=== PATIENT | female | born 1950 | race Caucasian/White ===

== ENCOUNTER → 2023-08-25 10:17 | Outpatient (REF) | payer MEDICARE, OTHER, SELFPAY | LOC: DHCBC MAIN 10:17 | PROVIDERS: ATTENDING PHYSICIAN Internal Medicine Cardiovascular Disease; FAMILY PHYSICIAN Nurse Practitioner Adult Health | DX: I35.1 Nonrheumatic aortic (valve) insufficiency (principal) | CPT/HCPCS: 93306 ==

== ENCOUNTER → 2023-09-19 11:52 | Outpatient (REF) | payer MEDICARE, OTHER, SELFPAY | LOC: DHCBC/DCA 11:52 | PROVIDERS: ATTENDING PHYSICIAN Internal Medicine Cardiovascular Disease; FAMILY PHYSICIAN Nurse Practitioner Adult Health | DX: R94.31 Abnormal electrocardiogram [ECG] [EKG] (principal); R06.00 Dyspnea, unspecified | CPT/HCPCS: 78452; 93017; A9500 ==

== ENCOUNTER → 2023-11-02 11:28 | Outpatient (REF) | payer MEDICARE, OTHER, SELFPAY ==
[2023-11-02 12:26] LABS: % Basophils 0.9 % (0-2); % Eosinophils 1.6 % (0-6); % Immature Granulocytes 0.3 % (0-0.5); % Lymphocytes 29.6 % (20.5-51.1); % Monocytes 7.5 % (1.7-9.3); % Neutrophils 60.1 % (42.2-75.2); Absolute Basophils 0.1 10^3/uL (0-0.2); Absolute Eosinophils 0.1 10^3/uL (0-0.7); Absolute Lymphocytes 2.1 10^3/uL (1.2-3.4); Absolute Monocytes 0.5 10^3/uL (0.1-0.6); Absolute Neutrophils 4.2 10^3/uL (1.4-6.5); Hematocrit 37.8 % (37.0-47.0); Hemoglobin 12.9 g/dL (12.0-16.0); Mean Corp Hgb Conc. 34.1 g/dL (33.0-37.0); Mean Corpuscular Hgb 31.2 pg (27.0-31.0); Mean Corpuscular Volume 91.5 fL (81.0-99.0); Mean Platelet Volume 9.8 fL (7.4-10.4); Nucleated Red Blood Cells % 0 %; Platelet Count 340 10^3/uL (130-400); Red Blood Cell Count 4.13 10^6/uL (4.20-5.40); Red Cell Dist. Width 12.9 % (11.5-14.5)
[2023-11-02 12:36] LABS: Erythrocyte Sed Rate 12 mm/hour (0-20)
[2023-11-02 13:56] LABS: Glycohemoglobin (HgbA1c) 5.8 % (4.0-5.6)
[2023-11-02 14:31] LABS: ALT (SGPT) 21 U/L (0-35); AST (SGOT) 29 U/L (14-36); Albumin 4.6 g/dl (3.5-5.0); Alkaline Phosphatase 80 U/L (38-126); Blood Urea Nitrogen 12 mg/dl (7-17); Calcium 9.5 mg/dl (8.4-10.2); Carbon Dioxide 29 mmol/L (22-30); Chloride 102 mmol/L (98-107); Creatine Phosphokinase 75 U/L (30-135); Glucose 92 mg/dl (70-99); HDL Cholesterol 99 mg/dl; Iron 143 ug/dl (37-170); LDL Cholesterol, Calculated 70 mg/dl; Potassium 4.3 mmol/L (3.5-5.1); Sodium 136 mmol/L (135-145); Total Bilirubin 0.6 mg/dl (0.2-1.3); Total Cholesterol 213 mg/dl (50-199); Total Protein 7.2 g/dl (6.3-8.2); Triglyceride 222 mg/dl (10-149); Very Low Density Lipoprotein 44 mg/dl (0-30); eGFR > 60.00
[2023-11-02 14:40] LABS: Percent Saturation 47 % (20-50); Total Iron Binding Capacity 300 ug/dl (265-497)
[2023-11-02 15:43] LABS: TSH Reflex To Free T4 0.55 uIU/ml (0.47-4.68)
[2023-11-02 15:47] LABS: Ferritin 55.3 ng/ml (11.1-264.0)
[2023-11-04 20:55] LABS: ANA, IgG Reflex to HEp-2 None Detected (None Detected)
[2023-11-06 16:55] LABS: Lyme Antibody Screen, EIA Negative (Negative)
== END ==
LOC: REG 11:28
PROVIDERS: ATTENDING PHYSICIAN Nurse Practitioner Adult Health
DX: I10 Essential (primary) hypertension (principal); M79.10 Myalgia, unspecified site; R53.83 Other fatigue; R42 Dizziness and giddiness; Z86.16 Personal history of COVID-19; R73.01 Impaired fasting glucose; E78.2 Mixed hyperlipidemia; D64.9 Anemia, unspecified
CPT/HCPCS: 36415; 80053; 80061; 82550; 82728; 83036; 83540; 83550; 84443; 85025; 85652; 86038; 86618

== ENCOUNTER → 2024-01-15 08:11 | Outpatient (REF) | payer MEDICARE, OTHER, SELFPAY | LOC: WDC 08:11 | PROVIDERS: ATTENDING PHYSICIAN Obstetrics & Gynecology Gynecology; FAMILY PHYSICIAN Nurse Practitioner Adult Health | DX: R92.8 Other abnormal and inconclusive findings on diagnostic imaging of breast (principal); N64.59 Other signs and symptoms in breast | CPT/HCPCS: 76642 ==

== ENCOUNTER → 2024-01-17 08:01 | Outpatient (REF) | payer MEDICARE, OTHER, SELFPAY ==
--- NOTE | 2024-01-17 14:11 | OID.BR.INTR ---
[facility] Breast Navigator - Initial
- -
Date of Contact: 01/17/24
Met with patient. Patient given written information on navigator services and support services available at [facility]. Will follow up as needed per protocol.
== END ==
LOC: WDC 08:01
PROVIDERS: ATTENDING PHYSICIAN Obstetrics & Gynecology Gynecology; FAMILY PHYSICIAN Nurse Practitioner Adult Health
DX: N63.14 Unspecified lump in the right breast, lower inner quadrant (principal)
CPT/HCPCS: 88305; 19083; 88341; 88342; 88360

== ENCOUNTER → 2024-02-22 07:02 | Outpatient (REF) | payer MEDICARE, OTHER, SELFPAY | LOC: MRI 07:02 | PROVIDERS: ATTENDING PHYSICIAN Orthopaedic Surgery; FAMILY PHYSICIAN Nurse Practitioner Adult Health | DX: M25.511 Pain in right shoulder (principal) | CPT/HCPCS: 73221 ==

== ENCOUNTER → 2024-03-04 07:44 | Outpatient (REF) | payer MEDICARE, OTHER, SELFPAY | LOC: WDC 07:44 | PROVIDERS: ATTENDING PHYSICIAN Surgery; FAMILY PHYSICIAN Nurse Practitioner Adult Health | DX: D24.1 Benign neoplasm of right breast (principal); R92.8 Other abnormal and inconclusive findings on diagnostic imaging of breast | CPT/HCPCS: 76642 ==

== ENCOUNTER 2024-03-15 06:15 | Day surgery (SDC) | payer MEDICARE, OTHER, SELFPAY ==
--- NOTE | 2024-03-06 11:51 | PTCARENOTE ---
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 See prior EKG scanned dated 08/30/23 that shows prior history of septal infarct.
[2024-03-15] VITALS (10 sets, daily range): BP systolic 90–165; BP diastolic 46–89; BMI 28.0
[2024-03-15] MEDS: VANCOCIN 200 IV (10:40)
[2024-03-15] MEDS: NORMOSOL-R/PLASMALYTE-A 1000 IV (10:42)
[2024-03-15] MEDS: DDAVP 54.875 MCG IV (10:45)
[2024-03-15] MEDS: TYLENOL 500 MG PO (10:46)
== END 2024-03-15 14:34 | disposition home or self-care (01) ==
LOC: SDS 06:15
PROVIDERS: ATTENDING PHYSICIAN Surgery
PROC: 0HBT0ZZ Excision of Right Breast, Open Approach (ICD-10-PCS; 2024-03-15)
DX: D24.1 Benign neoplasm of right breast (principal)
CPT/HCPCS: 19120; A4648; J2597

== ENCOUNTER → 2024-05-23 13:15 | Outpatient (REF) | payer MEDICARE, OTHER, SELFPAY ==
[2024-05-23 15:32] LABS: % Basophils 0.9 % (0-2); % Eosinophils 1.6 % (0-6); % Immature Granulocytes 0.3 % (0-0.5); % Lymphocytes 26.3 % (20.5-51.1); % Neutrophils 62.9 % (42.2-75.2); Absolute Basophils 0.1 10^3/uL (0-0.2); Absolute Eosinophils 0.1 10^3/uL (0-0.7); Absolute Lymphocytes 2.3 10^3/uL (1.2-3.4); Absolute Monocytes 0.7 10^3/uL (0.1-0.6); Absolute Neutrophils 5.5 10^3/uL (1.4-6.5); Hematocrit 38.8 % (37.0-47.0); Hemoglobin 12.9 g/dL (12.0-16.0); Mean Corp Hgb Conc. 33.2 g/dL (33.0-37.0); Mean Corpuscular Hgb 30.4 pg (27.0-31.0); Mean Corpuscular Volume 91.5 fL (81.0-99.0); Mean Platelet Volume 10.3 fL (7.4-10.4); Nucleated Red Blood Cells % 0 %; Platelet Count 372 10^3/uL (130-400); Red Blood Cell Count 4.24 10^6/uL (4.20-5.40); Red Cell Dist. Width 12.1 % (11.5-14.5); White Blood Cell Count 8.7 10^3/uL (4.8-10.8)
[2024-05-23 15:59] LABS: ALT (SGPT) 21 U/L (0-35); AST (SGOT) 28 U/L (14-36); Albumin 4.6 g/dl (3.5-5.0); Alkaline Phosphatase 79 U/L (38-126); Blood Urea Nitrogen 12 mg/dl (7-17); Calcium 9.3 mg/dl (8.4-10.2); Carbon Dioxide 28 mmol/L (22-30); Chloride 99 mmol/L (98-107); Glucose 90 mg/dl (70-99); HDL Cholesterol 93 mg/dl; LDL Cholesterol, Calculated 75 mg/dl; Potassium 4.2 mmol/L (3.5-5.1); Sodium 142 mmol/L (135-145); Total Bilirubin 0.5 mg/dl (0.2-1.3); Total Cholesterol 202 mg/dl (50-199); Total Protein 7.2 g/dl (6.3-8.2); Triglyceride 170 mg/dl (10-149); Very Low Density Lipoprotein 34 mg/dl (0-30); eGFR > 60.00
[2024-05-23 16:21] LABS: TSH 0.18 uIU/ml (0.47-4.68)
== END ==
LOC: REG 13:15
PROVIDERS: ATTENDING PHYSICIAN Nurse Practitioner Adult Health
DX: L65.9 Nonscarring hair loss, unspecified (principal); Z00.01 Encounter for general adult medical examination with abnormal findings; E78.2 Mixed hyperlipidemia; R53.82 Chronic fatigue, unspecified
CPT/HCPCS: 36415; 80053; 80061; 84443; 85025

== ENCOUNTER → 2024-07-16 14:27 | Outpatient (REF) | payer MEDICARE, OTHER, SELFPAY | LOC: HWRAD 14:27 | PROVIDERS: ATTENDING PHYSICIAN Obstetrics & Gynecology Gynecology; FAMILY PHYSICIAN Nurse Practitioner Adult Health | DX: Z78.0 Asymptomatic menopausal state (principal); Z12.31 Encounter for screening mammogram for malignant neoplasm of breast | CPT/HCPCS: 77063; 77067; 77080 ==

== ENCOUNTER → 2024-07-22 10:07 | Outpatient (REF) | payer MEDICARE, OTHER, SELFPAY | LOC: WDC 10:07 | PROVIDERS: ATTENDING PHYSICIAN Obstetrics & Gynecology Gynecology; FAMILY PHYSICIAN Nurse Practitioner Adult Health | DX: R92.8 Other abnormal and inconclusive findings on diagnostic imaging of breast (principal) | CPT/HCPCS: 76642 ==

== ENCOUNTER → 2024-09-17 15:33 | Outpatient (REF) | payer MEDICARE, OTHER, SELFPAY | LOC: RCS 15:33 | PROVIDERS: ATTENDING PHYSICIAN Physician Assistant; FAMILY PHYSICIAN Nurse Practitioner Adult Health | DX: J98.4 Other disorders of lung (principal) | CPT/HCPCS: 71046; 93005 ==

== ENCOUNTER 2024-11-05 09:30 | Outpatient (RCR) | payer MEDICARE, OTHER, SELFPAY | END 2024-11-06 11:04 | disposition home or self-care (01) | LOC: PURB 09:30 | PROVIDERS: ATTENDING PHYSICIAN Internal Medicine; FAMILY PHYSICIAN Nurse Practitioner Adult Health | DX: J98.4 Other disorders of lung (principal); J45.30 Mild persistent asthma, uncomplicated; R06.09 Other forms of dyspnea | CPT/HCPCS: G0237; G0239 ==

== ENCOUNTER 2024-11-14 09:30 | Outpatient (RCR) | payer MEDICARE, OTHER, SELFPAY | END 2024-12-06 10:42 | disposition home or self-care (01) | LOC: PURB 09:30 | PROVIDERS: ATTENDING PHYSICIAN Internal Medicine; FAMILY PHYSICIAN Nurse Practitioner Adult Health | DX: J98.4 Other disorders of lung (principal); J45.30 Mild persistent asthma, uncomplicated; R06.09 Other forms of dyspnea | CPT/HCPCS: G0239 ==

== ENCOUNTER → 2024-12-03 08:41 | Outpatient (REF) | payer MEDICARE, OTHER, SELFPAY ==
[2024-12-03 09:42] LABS: ALT (SGPT) 19 U/L (0-35); AST (SGOT) 24 U/L (14-36); Albumin 4.5 g/dl (3.5-5.0); Alkaline Phosphatase 64 U/L (38-126); Blood Urea Nitrogen 10 mg/dl (7-17); Calcium 9.4 mg/dl (8.4-10.2); Carbon Dioxide 30 mmol/L (22-30); Chloride 103 mmol/L (98-107); Glucose 113 mg/dl (70-99); HDL Cholesterol 90 mg/dl; LDL Cholesterol, Calculated 76 mg/dl; Potassium 4.2 mmol/L (3.5-5.1); Sodium 140 mmol/L (135-145); Total Bilirubin 0.7 mg/dl (0.2-1.3); Total Cholesterol 196 mg/dl (50-199); Total Protein 7.2 g/dl (6.3-8.2); Triglyceride 152 mg/dl (10-149); Very Low Density Lipoprotein 30 mg/dl (0-30); eGFR > 60.00
[2024-12-03 10:05] LABS: TSH Reflex To Free T4 0.99 uIU/ml (0.47-4.68)
== END ==
LOC: REG 08:41
PROVIDERS: ATTENDING PHYSICIAN Nurse Practitioner Adult Health
DX: I10 Essential (primary) hypertension (principal); E78.2 Mixed hyperlipidemia; G43.109 Migraine with aura, not intractable, without status migrainosus; R42 Dizziness and giddiness; R79.89 Other specified abnormal findings of blood chemistry
CPT/HCPCS: 36415; 80053; 80061; 84443

== ENCOUNTER 2025-01-02 09:30 | Outpatient (RCR) | payer MEDICARE, OTHER, SELFPAY | END 2025-01-06 09:39 | disposition home or self-care (01) | LOC: PURB 09:30 | PROVIDERS: ATTENDING PHYSICIAN Internal Medicine; FAMILY PHYSICIAN Nurse Practitioner Adult Health | DX: J98.4 Other disorders of lung (principal); J45.30 Mild persistent asthma, uncomplicated; R06.09 Other forms of dyspnea | CPT/HCPCS: G0239 ==

== ENCOUNTER → 2025-01-13 14:34 | Outpatient (REF) | payer MEDICARE, OTHER, SELFPAY | LOC: WDC 14:34 | PROVIDERS: ATTENDING PHYSICIAN Obstetrics & Gynecology Gynecology; FAMILY PHYSICIAN Nurse Practitioner Adult Health | DX: R92.8 Other abnormal and inconclusive findings on diagnostic imaging of breast (principal) | CPT/HCPCS: 76642 ==

== ENCOUNTER 2025-01-30 09:30 | Outpatient (RCR) | payer MEDICARE, OTHER, SELFPAY | END 2025-01-31 11:22 | disposition home or self-care (01) | LOC: PURB 09:30 | PROVIDERS: ATTENDING PHYSICIAN Internal Medicine; FAMILY PHYSICIAN Nurse Practitioner Adult Health | DX: J98.4 Other disorders of lung (principal); J45.30 Mild persistent asthma, uncomplicated; R06.09 Other forms of dyspnea; R06.83 Snoring; I10 Essential (primary) hypertension | CPT/HCPCS: G0239 ==

== ENCOUNTER → 2025-02-27 08:39 | Outpatient (REF) | payer MEDICARE, OTHER, SELFPAY | LOC: HWRAD 08:39 | PROVIDERS: ATTENDING PHYSICIAN Physician Assistant; FAMILY PHYSICIAN Nurse Practitioner Adult Health | DX: E04.2 Nontoxic multinodular goiter (principal) | CPT/HCPCS: 76536 ==

== ENCOUNTER → 2025-03-17 09:47 | Outpatient (REF) | payer MEDICARE, OTHER, SELFPAY ==
[2025-03-17 11:15] LABS: ALT (SGPT) 18 U/L (0-35); AST (SGOT) 24 U/L (14-36); Albumin 4.3 g/dl (3.5-5.0); Alkaline Phosphatase 67 U/L (38-126); Blood Urea Nitrogen 12 mg/dl (7-17); Calcium 9.5 mg/dl (8.4-10.2); Carbon Dioxide 29 mmol/L (22-30); Chloride 102 mmol/L (98-107); Glucose 105 mg/dl (70-99); Potassium 4.3 mmol/L (3.5-5.1); Sodium 138 mmol/L (135-145); Total Protein 6.9 g/dl (6.3-8.2); eGFR > 60.00
[2025-03-17 11:29] LABS: Free T3 3.48 pg/ml (2.77-5.27)
[2025-03-17 11:42] LABS: TSH 1.10 uIU/ml (0.47-4.68)
[2025-03-19 22:50] LABS: Total T3 (Sendout) 135 ng/dL (80-200)
== END ==
LOC: REG 09:47
PROVIDERS: ATTENDING PHYSICIAN Physician Assistant; FAMILY PHYSICIAN Nurse Practitioner Adult Health
DX: E05.90 Thyrotoxicosis, unspecified without thyrotoxic crisis or storm (principal)
CPT/HCPCS: 36415; 80053; 82330; 83970; 84439; 84443; 84480; 84481